=== PATIENT | male | born 1960 | race Caucasian/White ===

== ENCOUNTER 2019-03-02 18:53 | Emergency (ER) | payer BC ==
[2019-03-02 19:03] VITALS: RESP 18
--- NOTE | 2019-03-02 20:29 | XR ---
EXAMINATION TYPE: XR soft tissue neck DATE OF EXAM: 03/02/2019 COMPARISON: NONE HISTORY: Fishbone in the throat TECHNIQUE: 2 views FINDINGS: I see no definite radiopaque foreign body. Epiglottis appears normal. Subglottic trachea ap pears normal. There is mild anterior spurring at C5-6. IMPRESSION: No evidence of a radiopaque foreign body. Normal epiglottis.
--- NOTE | 2019-03-02 21:12 | ED ---
General Adult HPI - General Chief complaint: Skin/Abscess/Foreign Body Stated complaint: Fishbone in throat Time Seen by Provider: 03/02/19 19:55 Source: patient, RN notes reviewed Mode of arrival: ambulatory Limitations: no limitations - History of Present Illness Initial comments: [age]-year-old male presenting for evaluation of suspected foreign body in his throat. Yesterday afternoon he believes he swallowed a fish hook in his had some pain and discomfort in the right side of his throat since this occurrence. He states this was very small, approximately 1 inch long about the diameter of a pencil lead. No fever or chills. No difficulty swallowing. He has been eating and drinking normally since this occurrence. No focal to breathing. - Related Data Home Medications Medication Instructions Recorded Confirmed Meloxicam [Mobic] 7.5 mg PO DAILY PRN 03/01/15 03/02/19 Multivitamins, Thera [Multivitamin 1 tab PO DAILY 03/02/19 03/02/19 (formulary)] [place]-3/Dha/Epa/Fish Oil [Fish Oil 1 cap PO DAILY 03/02/19 03/02/19 500 mg Softgel] Allergies Allergy/AdvReac Type Severity Reaction Status Date / Time No Known Allergies Allergy Verified 03/02/19 20:06 Review of Systems ROS Statement: Those systems with pertinent positive or pertinent negative responses have been documented in the HPI. ROS Other: All systems not noted in ROS Statement are negative. Past Medical History Past Medical History: No Reported History History of Any Multi-Drug Resistant Organisms: None Reported Past Surgical History: No Surgical Hx Reported Additional Past Surgical History / Comment(s): colonscopy Past Psychological History: No Psychological Hx Reported Smoking Status: Never smoker Past Alcohol Use History: Occasional Past Drug Use History: None Reported General Exam Limitations: no limitations General appearance: alert, in no apparent distress Head exam: Present: atraumatic, normocephalic Eye exam: Present: normal appearance, PERRL ENT exam: Present: normal exam, normal oropharynx Neck exam: Present: normal inspection. Absent: tenderness, meningismus Respiratory exam: Present: normal lung sounds bilaterally. Absent: respiratory distress, wheezes, stridor Cardiovascular Exam: Present: regular rate, normal rhythm Course Vital Signs 03/02/19 03/02/19 19:01 21:21 Temperature 98.1 F 98.3 F Pulse Rate 79 75 Respiratory 18 18 Rate Blood Pressure 127/82 124/74 O2 Sat by Pulse 98 98 Oximetry Medical Decision Making - Medical Decision Making 58-year-old male with suspected fishbone in his esophagus. Patient is well- appearing stable vitals. No stridor. This occurred yesterday afternoon, described as a small fishbone. X-rays obtained, negative for foreign body. Patient will return with development worsening pain, swelling, difficulty breathing, or fever. Given GI follow-up. Disposition Clinical Impression: Fishbone in throat Disposition: HOME SELF-CARE Instructions (If sedation given, give patient instructions): Esophageal Foreign Body (ED) Is patient prescribed a controlled substance at d/c from ED?: No Referrals: Kia Ba MD [Primary Care Provider] - 1-2 days Betty Nation MD [STAFF PHYSICIAN] - 1-2 days Time of Disposition: 21:11
[2019-03-02 21:22] VITALS: BP 124/74; PULSE 75; TEMP 98.3
== END 2019-03-02 21:22 | disposition home or self-care (01) ==
LOC: EC 18:53
DX: Z03.89 Encounter for observation for other suspected diseases and conditions ruled out (principal)
CPT/HCPCS: 70360; 99283

== ENCOUNTER → 2020-07-21 | Outpatient (CLI) | payer BC ==
--- NOTE | 2020-07-21 08:49 | CT ---
EXAMINATION TYPE: CT chest wo con DATE OF EXAM: 07/21/2020 COMPARISON: None HISTORY: Cough and SOB CT DLP: 204.[address] of the chest was performed with lung and mediastinal window settings submitted. The la ck of contrast limits evaluation of the vascular, mediastinal and parenchymal structures including th e upper abdomen. LUNGS: The lungs are clear and free of infiltrate. No atelectasis. No pulmonary nodule or mass is de tected. No pleural effusion. No CT evidence of interstitial lung disease. MEDIASTINUM/PHANI: Thoracic aorta is of normal caliber with limited evaluation given lack of contrast . The heart is not enlarged. No evidence for mediastinal mass. No lymph nodes greater than 1cm. UPPER ABDOMEN: No significant abnormality is seen. OTHER: No significant other abnormality. IMPRESSION: 1. No distinct abnormality seen.
== END | disposition home or self-care (01) ==
LOC: RADCTMAIN 06:58
PROVIDERS: ATTEND Internal Medicine
DX: R05 Cough (principal); R06.02 Shortness of breath
CPT/HCPCS: 71250

== ENCOUNTER → 2020-08-12 | Outpatient (CLI) | payer BC | END | disposition home or self-care (01) | LOC: LABPAT 07:38 | PROVIDERS: ATTEND Student in an Organized Health Care Education/Training Program | DX: Z20.828 Contact with and (suspected) exposure to other viral communicable diseases (principal) | CPT/HCPCS: 93005; U0003 ==

== ENCOUNTER 2020-08-19 11:19 | Day surgery (SDC) | payer BC ==
[2020-08-15 15:31] VITALS: BMI 25.4
[~2020-08-19 11:19] MED LIST: DEXAMETHASONE SOD PHOSPHATE 4 MG/ML 1 ML VIAL IV ONE; HYDROmorphone 0.5 MG/0.5 ML SYRINGE IVP PRN; LACTATED RINGERS 1,000 ML IV SCH; LIDOCAINE 1% (10MG/ML) FOR IV START INTRADERMA PRN; ONDANSETRON 4 MG/2 ML VIAL IVP ONE; Pre Op ABX Message 1 EACH MISC MISCELLANE ONE; SCOPOLAMINE 1.5MG/72HR PATCH TRANSDERM ONE
[2020-08-19] MEDS ORDERED: MIDAZOLAM 2 MG/2 ML VIAL IVP ONE (12:17)
[2020-08-19] MEDS ORDERED: PROPOFOL 10 MG/ML 20 ML VIAL IV ONE (13:26)
[2020-08-19] MEDS ORDERED: MIDAZOLAM 2 MG/2 ML VIAL ONE (13:26)
[2020-08-19] MEDS ORDERED: fentaNYL (PF) 50 MCG/ML 2 ML AMP ONE (13:26)
[2020-08-19] MEDS ORDERED: LIDOCAINE 2%-EPI 1:100,000 20 ML VIAL SQ ONE ×2 (13:59)
[2020-08-19] MEDS ORDERED: LIDOCAINE 2% SYG (PF) 100 MG/5 ML MISCELLANE ONE (14:04)
[2020-08-19] MEDS ORDERED: GELATIN SPONGE,ABSORB (LARGE) 1 EACH SPONGE TOPICAL ONE (14:05)
--- NOTE | 2020-08-19 14:13 | P.OP ---
Date of Procedure: 08/19/20 Preoperative Diagnosis: Rectal lesion Postoperative Diagnosis: Grade one internal hemorrhoids Procedure(s) Performed: Flex sigmoidoscopy with hemorrhoidectomy x1 Anesthesia: JONATHANA Surgeon: Mohan Schmidt Estimated Blood Loss (ml): 1 Condition: stable Disposition: PACU Description of Procedure: Patient is brought operative suite risks and the dorsolithotomy position prepped and draped usual sterile fashion timeout performed correct patient correct procedure correct site was verified rectal exam was performed there was small internal hemorrhoids noted flex sigmoidoscopy was performed the scope was passed from the rectum up the sigmoid at 35 cm and then slowly withdrawn being sure to visualize all cuevas of the sigmoid and the rectum on the way out there is no gross abnormalities noted the scope was retroflexed in the rectum and again small internal hemorrhoids are noted rectal exam was performed at bedside and using an Allis clamp the 2 hemorrhoids 1 at 11:00 one at 3:00 were grasped and excised using a hand-held LigaSure device. Hemostasis was noted Gelfoam with lidocaine jelly was placed. Patient also had a perirectal block performed with local anesthetic. Patient tolerated the procedure well no apparent complications Plan - Discharge Summary Discharge Rx Participant: No New Discharge Prescriptions: No Action Meloxicam [Mobic] 7.5 mg PO BID PRN PRN Reason: Pain Tolterodine Tartrate [Detrol LA] 4 mg PO DAILY Discharge Medication List Meloxicam [Mobic] 7.5 mg PO BID PRN 03/01/15 [History] Tolterodine Tartrate [Detrol LA] 4 mg PO DAILY 08/15/20 [History]
[2020-08-19 14:20] VITALS: TEMP 97.5
[2020-08-19 15:23] VITALS: BP 110/75; PULSE 74; RESP 16
== END 2020-08-19 15:26 | disposition home or self-care (01) ==
LOC: ORWHC2ENDO 11:19
PROVIDERS: ATTEND Student in an Organized Health Care Education/Training Program
DX: K64.0 First degree hemorrhoids (principal); Z79.899 Other long term (current) drug therapy
CPT/HCPCS: 46260; 45330; 88304; J2250; J1100; J0690; J2405; J2001; J3010; J2704

== ENCOUNTER → 2021-06-22 | Outpatient (CLI) | payer BC | END | disposition home or self-care (01) | LOC: LABWHC1 09:35 | PROVIDERS: ATTEND Internal Medicine | DX: R19.7 Diarrhea, unspecified (principal) | CPT/HCPCS: 87045; 87046; 87324; 87328; 87329 ==

== ENCOUNTER 2023-12-23 09:34 | Day surgery (SDC) | payer BC ==
[~2023-12-23 09:34] MED LIST changes: -DEXAMETHASONE SOD PHOSPHATE 4 MG/ML 1 ML VIAL IV ONE; -HYDROmorphone 0.5 MG/0.5 ML SYRINGE IVP PRN; -LACTATED RINGERS 1,000 ML IV SCH; -ONDANSETRON 4 MG/2 ML VIAL IVP ONE; -Pre Op ABX Message 1 EACH MISC MISCELLANE ONE; -SCOPOLAMINE 1.5MG/72HR PATCH TRANSDERM ONE
[2023-12-23] MEDS: LACTATED RINGERS 1,000 ML IV SCH (10:12)
[2023-12-23 10:27] VITALS: TEMP 97.4
[2023-12-23] MEDS ORDERED: PROPOFOL 10 MG/ML 20 ML VIAL IV ONE (10:59)
--- NOTE | 2023-12-23 11:16 | P.PCN ---
Date of Procedure: 12/23/23 Procedure(s) Performed: BRIEF HISTORY: Patient is a 63-year-old pleasant white male scheduled for an elective colonoscopy as a part of screening for colon cancer/positive Cologuard PROCEDURE PERFORMED: Colonoscopy. PREOPERATIVE DIAGNOSIS: Screening for colon cancer/positive Cologuard. IV sedation per Anesthesia. PROCEDURE: After informed consent was obtained, the patient, was brought into the endoscopy unit. IV sedation was administered by Anesthesia under continuous monitoring. Digital rectal examination was normal. Initially the Olympus CF-160 flexible video colonoscope was then inserted in the rectum, gradually advanced into the cecum without any difficulty. Careful examination was performed as the scope was gradually being withdrawn. Ileocecal valve and the appendiceal orifice were visualized and appeared normal. Prep was excellent. Mucosa of the cecum, ascending colon, transverse colon, descending colon, sigmoid colon, and rectum appeared normal. Scattered sigmoid diverticulosis. Retroflexion was performed in the rectum and no lesions were seen. The patient tolerated the procedure well. IMPRESSION: Normal-appearing colon from rectum to cecum with no evidence of colorectal neoplasia Scattered sigmoid diverticulosis. RECOMMENDATIONS: Findings of this examination were discussed with the patient as well as his family. He was advised to have repeat screening colonoscopy in 10 years.
[2023-12-23 11:59] VITALS: BP 127/75; PULSE 69; RESP 16
== END 2023-12-23 12:06 | disposition home or self-care (01) ==
LOC: ORWHC2ENDO 09:34
PROVIDERS: ATTEND Internal Medicine Gastroenterology
DX: K57.30 Diverticulosis of large intestine without perforation or abscess without bleeding (principal); Z87.891 Personal history of nicotine dependence
CPT/HCPCS: 45378; J2704